=== PATIENT | female | born 1965 | race African-American/Black ===

== ENCOUNTER 2016-07-07 00:33 | Inpatient (IN) | payer OTHER ==
[~2016-07-07] VITALS: Ht 165.1 cm; Wt 71.8 kg
[~2016-07-07 00:33] MED LIST: ASPIR 8181 M1 PO; ASPIR-LOW81 MG PO; EVZIO0.4 MG/0.4 IM; FLOVENT 44120 INHALA IH; HYDROCHLOROTH12.5 M3 PO; HYDROCHLOROTHIA25 MG PO; LIBRIUM25 MG PO; PROAIR HFA8.5 GM IH; VALTREX50 MG/ML PO
[2016-07-07 00:58] LABS: HEMATOCRIT 36.8 % (36.0-46.0); MCH 31.8 PG (29.0-34.0); MCHC 34.8 G/DL (30.0-36.0); MCV 91.3 FL (83-99); MEAN PLAT.VOLUME 10.1 uM^3 (9.5-12.4); PLATELET COUNT 137 K/uL (156-360); RBC DIS.WIDTH-CV 15.4 % (11.8-14.6); RBC DIS.WIDTH-SD 50.1 % (39-53); RED BLOOD COUNT 4.03 M/uL (3.80-5.20); WHITE BLOOD COUNT 6.3 K/uL (4.1-10.2)
[2016-07-07 01:08] LABS: CHLORIDE 95 mEq/L (99-109); POTASSIUM 3.7 mEq/L (3.7-5.4); SODIUM 136 mEq/L (136-147)
[2016-07-07 01:11] LABS: GLUCOSE 58 mg/dL (70-99)
[2016-07-07 01:12] LABS: ANION GAP 35 MEQ/L (2-14)
[2016-07-07 01:14] LABS: ALKALINE PHOSPHATASE 83 IU/L (3-129); GFR ESTIMATE (CALCULATED) 51 mL/min/
[2016-07-07 01:15] LABS: UREA NITROGEN (BUN) 11 mg/dL (9-23)
[2016-07-07 01:23] LABS: QUANTITATIVE HCG < 4.0 MIU/ML
[2016-07-07 01:32] LABS: SERUM ETHYL ALCOHOL < 10 mg/dL
[2016-07-07 01:35] LABS: LIPASE 261 U/L (1.0-51.0)
[2016-07-07 01:37] LABS: CARBOXY HGB 2.1 % (0-5); COMMENTS - BLOOD GASES C+A+; FI02 21 %; O2 FLOW 0 L/MIN; PCO2 < 18 mm Hg (35-45); PO2 110 mm Hg (80-100); SITE LR; pH 7.17 (7.35-7.45)
[2016-07-07 01:55] LABS: TROP-I INTERPRETATION NEGATIVE; TROPONIN-I < 0.01 ng/mL (0.0-0.30)
[2016-07-07 04:40] LABS: ADD MIUA? YES; BILIRUBIN NEGATIVE; BLOOD MODERATE; COLOR YELLOW ((YELLOW)); GLUCOSE (STRIP) NEGATIVE; KETONES 80; LEUKOCYTES NEGATIVE; NITRITE NEGATIVE; PROTEIN (STRIP) 30; SPECIFIC GRAVITY 1.018 (1.000-1.030); UROBILINOGEN 0.2 MG/DL (0.2-1.0)
[2016-07-07 04:47] LABS: BACTERIA NONE SEEN /HPF; EPITHELIAL CELLS RARE /HPF; HYALINE CASTS 0-5 /LPF; MUCUS TRACE /LPF; RED BLOOD CELLS 0-5 /HPF (0-5); UCUL ADDED? NO; WHITE BLOOD CELLS 0-5 /HPF (0-5)
[2016-07-07 05:24] LABS: BASE EXCESS -18.3 mEq/L (-3 to +3); BICARBONATE 7.6 mEq/L (22-26); CARBOXY HGB 1.6 % (0-5); COMMENTS - BLOOD GASES C+A+; DEVICE ROOM AIR; METHEMOGLOBIN 1.8 % (0-1.5); PCO2 19 mm Hg (35-45); PO2 99 mm Hg (80-100); SITE LR
[2016-07-07 05:30] LABS: MCHC 35.3 G/DL (30.0-36.0); MCV 90.7 FL (83-99); MEAN PLAT.VOLUME 9.9 uM^3 (9.5-12.4); PLATELET COUNT 121 K/uL (156-360); RBC DIS.WIDTH-CV 14.9 % (11.8-14.6); RBC DIS.WIDTH-SD 48.2 % (39-53); RED BLOOD COUNT 3.53 M/uL (3.80-5.20); WHITE BLOOD COUNT 6.8 K/uL (4.1-10.2)
[2016-07-07 05:38] LABS: pH 7.21 (7.35-7.45)
[2016-07-07 05:42] LABS: CHLORIDE 100 mEq/L (99-109); POTASSIUM 3.9 mEq/L (3.7-5.4); SODIUM 135 mEq/L (136-147)
[2016-07-07 05:46] LABS: ANION GAP 27 MEQ/L (2-14)
[2016-07-07 05:47] LABS: TOTAL BILIRUBIN 0.8 mg/dL (0.0-1.0)
[2016-07-07 05:48] LABS: ALKALINE PHOSPHATASE 69 IU/L (3-129); GFR ESTIMATE (CALCULATED) 55 mL/min/
[2016-07-07 05:49] LABS: UREA NITROGEN (BUN) 10 mg/dL (9-23)
[2016-07-07 05:54] VITALS: BP 181/91
[2016-07-07 06:00] LABS: GLUCOSE 100 mg/dL (70-99)
[2016-07-07 11:09] VITALS: BP 175/87
[2016-07-07 15:02] VITALS: BP 121/76
[2016-07-07 16:11] LABS: POINT-OF-CARE METER ID UU14174225
[2016-07-07 20:36] VITALS: BP 145/81
[2016-07-08] VITALS (7 sets, daily range): BP systolic 112–146; BP diastolic 60–89
[2016-07-08 06:57] LABS: HEMATOCRIT 30.9 % (36.0-46.0); MCH 32.2 PG (29.0-34.0); MCHC 35.9 G/DL (30.0-36.0); MCV 89.6 FL (83-99); MEAN PLAT.VOLUME 10.9 uM^3 (9.5-12.4); PLATELET COUNT 110 K/uL (156-360); RBC DIS.WIDTH-CV 14.7 % (11.8-14.6); RBC DIS.WIDTH-SD 48.1 % (39-53); RED BLOOD COUNT 3.45 M/uL (3.80-5.20)
[2016-07-08 07:00] LABS: WHITE BLOOD COUNT 4.5 K/uL (4.1-10.2)
[2016-07-08 07:05] LABS: ANION GAP 16 MEQ/L (2-14); CHLORIDE 96 MEQ/L (99-109); GFR ESTIMATE (CALCULATED) > 59 mL/min/; GLUCOSE 83 mg/dL (70-99); SAMPLE HEMOLYSIS CHECK 0; SAMPLE ICTERIC CHECK 0; SAMPLE LIPEMIA CHECK 0; SODIUM 134 MEQ/L (136-147); UREA NITROGEN (BUN) 7 mg/dL (9-23)
[2016-07-08 07:18] LABS: POTASSIUM 2.9 MEQ/L (3.7-5.4)
[2016-07-08 07:24] LABS: ADD MIUA? YES; BILIRUBIN NEGATIVE; BLOOD SMALL; COLOR YELLOW ((YELLOW)); GLUCOSE (STRIP) NEGATIVE; KETONES 80; LEUKOCYTES NEGATIVE; NITRITE NEGATIVE; PROTEIN (STRIP) NEGATIVE; UROBILINOGEN 0.2 MG/DL (0.2-1.0)
[2016-07-08 08:06] LABS: MAGNESIUM 1.8 mg/dl (1.3-2.7)
[2016-07-08 08:39] LABS: EPITHELIAL CELLS RARE /HPF; MUCUS NONE SEEN /LPF; RED BLOOD CELLS 0-5 /HPF (0-5); WHITE BLOOD CELLS 0-5 /HPF (0-5)
[2016-07-08 08:40] LABS: BACTERIA RARE /HPF; CASTS PRESENT /LPF; FINE GRANULAR CASTS 0-5 /LPF; HYALINE CASTS RARE /LPF; UCUL ADDED? NO
[2016-07-08] MEDS ORDERED: BLOOD PRESSURE MED PO (13:39)
[2016-07-09 06:50] LABS: MCH 31.2 PG (29.0-34.0); MCHC 35.2 G/DL (30.0-36.0); MCV 88.8 FL (83-99); MEAN PLAT.VOLUME 10.3 uM^3 (9.5-12.4); PLATELET COUNT 96 K/uL (156-360); RBC DIS.WIDTH-CV 14.8 % (11.8-14.6); RBC DIS.WIDTH-SD 48.1 % (39-53); RED BLOOD COUNT 3.49 M/uL (3.80-5.20); WHITE BLOOD COUNT 4.5 K/uL (4.1-10.2)
[2016-07-09 07:18] LABS: ANION GAP 11 MEQ/L (2-14); CHLORIDE 102 MEQ/L (99-109); GFR ESTIMATE (CALCULATED) > 59 mL/min/; GLUCOSE 101 mg/dL (70-99); POTASSIUM 2.9 MEQ/L (3.7-5.4); SAMPLE HEMOLYSIS CHECK 0; SAMPLE ICTERIC CHECK 0; SAMPLE LIPEMIA CHECK 0; SODIUM 140 MEQ/L (136-147); UREA NITROGEN (BUN) 4 mg/dL (9-23)
[2016-07-09 07:42] VITALS: BP 141/86
[2016-07-09 08:29] LABS: MAGNESIUM 1.6 mg/dl (1.3-2.7)
[2016-07-09 12:34] VITALS: BP 120/82
[2016-07-09] MEDS ORDERED: FOLIC ACID1 MG PO (13:45)
[2016-07-09] MEDS ORDERED: KLOR-CON M2020 MEQ PO (13:45)
[2016-07-09] MEDS ORDERED: Thiamine,Vitamin B1 PO (13:45)
[2016-07-09] MEDS ORDERED: FLUOXETINE HCL10 MG PO (13:46)
[2016-07-09] MEDS ORDERED: NICOTINE PATCH1 EAC2 TD (13:46)
[2016-07-09] MEDS ORDERED: QUETIAPINE FUMA25 MG PO (13:46)
== END 2016-07-09 14:51 | disposition home or self-care (01) | DRG 439 ==
LOC: EME 00:33 → EDOF 04:13 → 5SOUTH 04:13
PROVIDERS: Emergency Medicine; Hospitalist; Internal Medicine; Physician Assistant
DX: K85.90 Acute pancreatitis without necrosis or infection, unspecified (principal); E87.2 Acidosis; N17.9 Acute kidney failure, unspecified; F10.239 Alcohol dependence with withdrawal, unspecified; E87.6 Hypokalemia; F17.210 Nicotine dependence, cigarettes, uncomplicated; I10 Essential (primary) hypertension; F31.9 Bipolar disorder, unspecified; Y90.0 Blood alcohol level of less than 20 mg/100 ml
CPT/HCPCS: 36600; 71010; 74177; 80048; 80053; 81003; 82803; 82948; 83605; 83690; 83735; 84132 91; 84484; 84702; 85027; 87493; 93005; 99281; 99285; G0480; J1644; J2060; J2405; J3010; J3411; J3475; J3480; J7030; S0028

== ENCOUNTER 2016-10-27 14:19 | Emergency (ER) | payer SELFPAY ==
[~2016-10-27] VITALS: Ht 167.6 cm; Wt 67.9 kg
[~2016-10-27 14:19] MED LIST changes: +BLOOD PRESSURE MED PO; +FLUOXETINE HCL10 MG PO; +FOLIC ACID1 MG PO; +KLOR-CON M2020 MEQ PO; +NICOTINE PATCH1 EAC2 TD; +QUETIAPINE FUMA25 MG PO; +Thiamine,Vitamin B1 PO
[2016-10-27 15:53] LABS: CHLORIDE 104 mEq/L (99-109); POTASSIUM 2.8 mEq/L (3.7-5.4)
[2016-10-27 15:54] LABS: SODIUM 144 mEq/L (136-147)
[2016-10-27 15:56] LABS: GLUCOSE 86 mg/dL (70-99)
[2016-10-27 15:57] LABS: ANION GAP 21 MEQ/L (2-14)
[2016-10-27 15:58] LABS: TOTAL BILIRUBIN 0.3 mg/dL (0.0-1.0)
[2016-10-27 15:59] LABS: ALKALINE PHOSPHATASE 69 IU/L (3-129); SERUM ETHYL ALCOHOL 198 mg/dL
[2016-10-27 16:00] LABS: GFR ESTIMATE (CALCULATED) > 59 mL/min/
[2016-10-27 16:01] LABS: UREA NITROGEN (BUN) 13 mg/dL (9-23)
[2016-10-27 16:12] LABS: ADD MIUA? YES; BILIRUBIN NEGATIVE; BLOOD SMALL; COLOR YELLOW ((YELLOW)); GLUCOSE (STRIP) NEGATIVE; KETONES 20; LEUKOCYTES NEGATIVE; NITRITE NEGATIVE; PROTEIN (STRIP) 30; SPECIFIC GRAVITY 1.009 (1.000-1.030); UROBILINOGEN 0.2 MG/DL (0.2-1.0)
[2016-10-27 16:23] LABS: AMPHETAMINE NEGATIVE (500 ng/mL); BACTERIA RARE /HPF; BARBITURATES NEGATIVE (200 ng/mL); BENZODIAZEPINES NEGATIVE (150 ng/mL); COCAINE NEGATIVE (150 ng/mL); EPITHELIAL CELLS 2+ /HPF; INTERNAL CONTROLS VALID? YES; METHADONE NEGATIVE (200 ng/mL); METHAMPHETAMINE NEGATIVE (500 ng/mL); MUCUS 2+ /LPF; OPIATES (MORPHINE) NEGATIVE (100 ng/mL); OXYCODONE NEGATIVE (100 ng/mL); PHENCYCLIDINE NEGATIVE (25 ng/mL); PROPOXYPHENE NEGATIVE (300 ng/mL); RED BLOOD CELLS 0-5 /HPF (0-5); THC CANNABINOIDS NEGATIVE (50 ng/mL); TRICYCLIC ANTIDEPRESSANTS NEGATIVE (300 ng/mL); WHITE BLOOD CELLS 0-5 /HPF (0-5)
[2016-10-27 22:09] VITALS: BP 144/87
== END 2016-10-27 22:09 | disposition home or self-care (01) ==
LOC: EME 14:19
PROVIDERS: Emergency Medicine
DX: F10.129 Alcohol abuse with intoxication, unspecified (principal); Y90.6 Blood alcohol level of 120-199 mg/100 ml; E87.6 Hypokalemia; E11.9 Type 2 diabetes mellitus without complications; I10 Essential (primary) hypertension; F17.200 Nicotine dependence, unspecified, uncomplicated
CPT/HCPCS: 80053; 81003; 93005; 99281; 99285; G0480; J2310; J2405; J3480; J7030